=== PATIENT | female | born 1945 | race Caucasian/White ===

== ENCOUNTER 2017-10-11 08:54 | Emergency (ER) | payer MEDICARE, OTHER ==
--- NOTE | 2017-10-11 09:37 | EDM.PDOC ---
ED HPI GENERAL MEDICAL PROBLEM - General Chief Complaint: Eye Problems Stated Complaint: INFECTED RIGHT EYE Time Seen by Provider: 10/11/17 09:36 Source of Information: Reports: Patient History Limitations: Reports: No Limitations - History of Present Illness INITIAL COMMENTS - FREE TEXT/NARRATIVE: pt arrived with drainage and redness in the rt eye. This started yesterday and now it is alot worse. She had no feeling of a foreign body. She hs alot of drainage and the eye is sealed shut this am. Onset: Other ( started yesterday) Duration: Day(s): Location: Reports: Face Associated Symptoms: Reports: No Other Symptoms - Related Data Allergies Allergy/AdvReac Type Severity Reaction Status Date / Time piroxicam [From Feldene] Allergy Hives Verified 10/11/17 09:20 Home Meds: Home Meds Aspirin 81 mg PO DAILY 10/11/17 [History] Calc/D3/Mag/Zn/Circuit Board Drafter/Shamar/Kirkwood [Calcium 600 MG Plus Vit D] 1 tab PO BID 10/11/17 [History] Fexofenadine [Nohemi] 180 mg PO DAILY 10/11/17 [History] Fluticasone/Salmeterol [Advair 250-50] 1 inh INH BID 10/11/17 [History] Hydrochlorothiazide 12.5 mg PO DAILY 10/11/17 [History] Insulin Pump Cartridge [Omnipod] 10/11/17 [History] Metoprolol Succinate [Toprol XL 100mg] 100 mg PO DAILY 10/11/17 [History] Phentermine/Topiramate [Qsymia 7.5 mg-46 mg Capsule] 1 tab PO BID 10/11/17 [ History] amLODIPine Besylate/Benazepril [Lotrel 5-40 MG] 1 tab PO DAILY 10/11/17 [History ] atorvaSTATin [Lipitor] 20 mg PO DAILY 10/11/17 [History] Past Medical History Cardiovascular History: Reports: Hypertension Respiratory History: Reports: Asthma Musculoskeletal History: Reports: Osteoarthritis Endocrine/Metabolic History: Reports: Diabetes, Type I - Past Surgical History HEENT Surgical History: Reports: Tonsillectomy GI Surgical History: Reports: Appendectomy Social & Family History - Tobacco Use Smoking Status *Q: Never Smoker - Recreational Drug Use Recreational Drug Use: No ED ROS GENERAL - Review of Systems Review Of Systems: See Below Constitutional: Reports: No Symptoms HEENT: Reports: Eye Discharge, Eye Pain Respiratory: Reports: No Symptoms Cardiovascular: Reports: No Symptoms Endocrine: Reports: No Symptoms GI/Abdominal: Reports: No Symptoms : Reports: No Symptoms ED EXAM GENERAL W FULL EYE - Physical Exam Exam: See Below Text/Narrative:: pt arrived with dischrge from the rt eye with considerable redness. She had lazer surgery about 4 weeks ago. Exam Limited By: No Limitations General Appearance: Alert, Mild Distress, Other ( rt eye is very red and injected. There is drainage from the eye. Thre is slight swelling around the eye. ) Ears: Normal TMs Nose: Normal Inspection Throat/Mouth: Normal Inspection Head: Atraumatic Neck: Normal Inspection Course - Vital Signs Last Recorded V/S: Last Vital Signs Temp 36.4 C 10/11/17 09:16 Pulse 64 10/11/17 09:16 Resp 13 10/11/17 09:16 BP 145/63 H 10/11/17 09:16 Pulse Ox 93 L 10/11/17 09:16 Departure - Departure Time of Disposition: 09:41 Disposition: Home, Self-Care 01 Condition: Fair Clinical Impression: Acute bacterial conjunctivitis - Discharge Information Referrals: Frankie De Los Santos Sr, MD [Primary Care Provider] - Forms: ED Department Discharge Care Plan Goals: obradex 1-2 drops qid in the rt eye for the next 5 days. If not improving have this rechecked.
== END 2017-10-11 09:51 | disposition home or self-care (01) ==
LOC: JP.ED 08:54
DX: H10.31 Unspecified acute conjunctivitis, right eye (principal); E10.9 Type 1 diabetes mellitus without complications; M19.90 Unspecified osteoarthritis, unspecified site; Z88.8 Allergy status to other drugs, medicaments and biological substances; Z79.82 Long term (current) use of aspirin; Z79.899 Other long term (current) drug therapy
CPT/HCPCS: 99283

== ENCOUNTER 2018-09-27 09:04 | Inpatient (IN) | payer MEDICARE, OTHER ==
[~2018-09-27 09:04] MED LIST: Acetaminophen 500 MG Tab PO ONE
[2018-09-27] MEDS ORDERED: Dextrose 5%-Lactated Ringers 1,000 ML IV SCH (10:00)
[2018-09-27] MEDS ORDERED: Isosulfan Blue 5 ML SDV ONE (10:01)
[2018-09-27] MEDS ORDERED: Albuterol/Ipratropium 3.0-0.5 MG/3 ML Neb Soln NEB ONE (10:30)
[2018-09-27] MEDS ORDERED: ceFAZolin 2 GM in Premix Bag 1 BAG IV ONE (10:30)
[2018-09-27] MEDS ORDERED: Midazolam 1 MG/ML 2 ML SDV ONE (10:54)
[2018-09-27] MEDS ORDERED: Propofol 200 MG/20 ML SDV ONE (10:54)
[2018-09-27] MEDS ORDERED: fentaNYL 100 MCG/2 ML SDV ONE (10:54)
[2018-09-27] MEDS ORDERED: Succinylcholine 200 MG/10 ML MDV ONE (10:55)
[2018-09-27] MEDS ORDERED: Dexamethasone 4 MG/ML SDV ONE (10:55)
[2018-09-27] MEDS ORDERED: Neostigmine Methylsulfate 1 MG/ML 5 ML Syringe ONE (10:55)
[2018-09-27] MEDS ORDERED: Glycopyrrolate 0.2 MG/ML 5 ML MDV ONE (10:55)
[2018-09-27] MEDS ORDERED: Ondansetron 4 MG/2 ML SDV ONE (10:55)
[2018-09-27] MEDS ORDERED: fentaNYL 250 MCG/5 ML SDV ONE (11:24)
[2018-09-27] MEDS ORDERED: Triamcinolone Acetonide 40 MG/ML 1 ML MDV ONE (12:09)
[2018-09-27] MEDS ORDERED: HYDROmorphone/Normal Saline 15 MG/30 ML PCA IV PRN (12:46)
[2018-09-27] MEDS ORDERED: Naloxone 0.4 MG/ML SDV IV PRN (12:48)
[2018-09-27] MEDS ORDERED: Ondansetron 4 MG/2 ML SDV IVPUSH PRN (13:50)
[2018-09-27] MEDS ORDERED: Albuterol 8 GM Inhaler INH PRN (13:51)
[2018-09-27] MEDS ORDERED: NOVOLOG INSULIN PUMP SUBCUT SCH (14:00)
[2018-09-27] MEDS ORDERED: Pantoprazole 40 MG Vial IV SCH (16:00)
[2018-09-27] MEDS: ceFAZolin 2 GM in Premix Bag 1 BAG IV SCH (16:38)
[2018-09-27] MEDS ORDERED: Lactated Ringers 1,000 ML IV SCH (20:45)
[2018-09-27] MEDS: Fluticasone-Salmeterol 113-14 MCG Powder Inhalant INH SCH (21:35)
[2018-09-28] MEDS: ceFAZolin 2 GM in Premix Bag 1 BAG IV SCH ×2 (00:37→08:04)
[2018-09-28] MEDS ORDERED: HYDROmorphone 2 MG Tab PO PRN (07:11)
[2018-09-28] MEDS ORDERED: Acetaminophen 325 MG Tab PO PRN (07:11)
[2018-09-28] MEDS: Fluticasone-Salmeterol 113-14 MCG Powder Inhalant INH SCH ×2 (08:33→20:05)
[2018-09-28] MEDS: Hydrochlorothiazide 12.5 MG Cap PO SCH (08:33)
[2018-09-28] MEDS: Metoprolol Succinate 50 MG Tab.ER PO SCH (08:35)
[2018-09-28] MEDS: Loratadine 10 MG Tab PO SCH (08:35)
[2018-09-28] MEDS: amLODIPine 5 MG Tab PO SCH (08:35)
[2018-09-28] MEDS: Aspirin 81 MG Tab.EC PO SCH (08:35)
[2018-09-28] MEDS: atorvaSTATin 20 MG Tab PO SCH (08:40)
--- NOTE | 2018-09-28 13:45 | PN ---
DATE OF SERVICE: 09/28/2018 The patient has been afebrile with stable vital signs. Blood sugars were a little bit high last night, but they are coming down. She will satisfactorily today, I would think, and will go up to her usual diet. NITHYA drainage has been minimal. Pain control has been good with patient being on for pain and will go to oral Tylenol and/or Dilaudid today. She will likely be ready for discharge home tomorrow. Joesph Thurston MD /[id number]
[2018-09-28] MEDS ORDERED: Pantoprazole 40 MG Tab.CR PO SCH (16:00)
[2018-09-29] MEDS: Fluticasone-Salmeterol 113-14 MCG Powder Inhalant INH SCH (07:22)
[2018-09-29] MEDS: Loratadine 10 MG Tab PO SCH ×2 (07:25→08:30)
[2018-09-29] MEDS: amLODIPine 5 MG Tab PO SCH ×2 (07:26→08:31)
[2018-09-29] MEDS: Hydrochlorothiazide 12.5 MG Cap PO SCH ×2 (07:26→08:30)
[2018-09-29] MEDS: Metoprolol Succinate 50 MG Tab.ER PO SCH ×2 (07:27→08:31)
[2018-09-29] MEDS: Aspirin 81 MG Tab.EC PO SCH (08:30)
[2018-09-29] MEDS: atorvaSTATin 20 MG Tab PO SCH (08:30)
--- NOTE | 2018-09-29 14:00 | OR ---
DATE OF PROCEDURE: 09/27/2018 SURGEON: Joesph Thurston MD PREOPERATIVE DIAGNOSIS: Carcinoma, left breast. POSTOPERATIVE DIAGNOSIS: Carcinoma, left breast. OPERATIVE PROCEDURES: 1. Left modified radical mastectomy with sentinel lymph node biopsy (25293). 2. Injection procedure for identification of sentinel lymph node ([id number]). ANESTHESIA: General. CHILDREN'S ENTERTAINER: Ceci Cortez PA-C. 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 After preoperative evaluation with both myself and Dr. Shepherd of the Medical Oncology Department, she wishes to proceed with a mastectomy with sentinel lymph node biopsy. Potential risks of the procedure including bleeding, infection, possible local distant tumor recurrence, possible need for a full axillary dissection if the damian status is found to be positive, were all gone over, and the patient wishes to proceed. DETAILS OF PROCEDURE: The patient was taken to the operating room and after general endotracheal anesthesia was induced, the left breast, axilla and surrounding areas were prepped and draped. An elliptical incision was then designed removing nipple-areolar complex due to the close wide margin around the biopsy site. This was carried down through the skin and subcutaneous tissue. Subcutaneous tissue flaps were then raised superiorly, inferiorly, laterally, and medially to the usual extent. Prior to the patient having undergone the prep, 4 mL of isosulfan blue dye was injected in the area around the biopsy site, nipple-areolar complex in the subdermal location. This then allowed tracing down the lymphatic channels from the upper aspect of the breast into the axilla. An aggregate of damian tissue that had blue staining within it was then identified, and this was excised with the aid of electrocautery, as well as some hemoclips, and that specimen delivered from the field. On frozen section, pathologist found five nodes. One of these had a small area of possible equivocal metastatic disease, but she was by no means certain of this. Given the tiny area of infiltrating tumor, a discussion was held, and it was felt that further axillary dissection would not be warranted. Pending final pathologic review, if this remains relatively small focus with five other nodes being negative, that probably would be a sufficient axillary dissection at this point regardless. The breast was then reflected off the chest wall in continuity with pectoralis major fascia and was then delivered from the field. The area of dissection was inspected. No bleeding or other problems were noted. Two Keon-Haney drains were then placed inferior to the main incision and draped across the bed of the dissection. The incision was then closed with some 3-0 Vicryl stitch deep and isaak for the skin. Drains were affixed with some 4-0 Vicryl stitch. Dressing was applied. The patient was taken to the recovery room in a satisfactory condition. Physician registered dental assistant rda, Ceci Cortez, played an essential role in assisting in this case, helping to position the patient, retract structures as needed, as well as suturing and cutting sutures when indicated. Her presence improved patient safety and decreased the operative time. Joesph Thurston MD /[id number]
--- NOTE | 2018-09-30 09:06 | DISCH ---
ADMISSION DIAGNOSES: 1. Left breast cancer. 2. Asthma. 3. Chronic obstructive pulmonary disease. 4. Gastroesophageal reflux disease. 5. Hypertension. 6. Type 1 diabetes. DISCHARGE DIAGNOSES: Left modified radical mastectomy with sentinel lymph node biopsy and injection of dye for sentinel lymph node identification for left breast cancer. Date of surgery: 09/27/2018. HISTORY: Jaja Garza is a 73-year-old female presenting with a newly diagnosed area of high-grade DCIS, along with a micro focus of 0.1 cm of invasive ductal carcinoma. After preoperative evaluation and discussion of possible risks and possible complications, she wished to proceed with surgical procedure. HOSPITAL COURSE: Jaja had her surgery on 09/27/2018. She had no operative complications. On postoperative day #1, she was afebrile, blood sugars were high but were coming down. Pain was well controlled. NITHYA drains were putting out minimal amount of pink drainage. On postoperative day #2, vital signs were stable. Activity was good. Pain was managed with Tylenol. Oral intake adequate and blood sugars remained to be elevated at 278 and 300. Jaja did receive physical therapy consultation for home instructions following a mastectomy. Patient education sheet was given. PHYSICAL EXAMINATION: GENERAL: Jaja is a 73-year-old female. VITAL SIGNS: Height 5 feet 2.99 inches, weight is 186 pounds. TPR 97.8, 60, 16, blood pressure 136/58. HEENT: Negative. NECK: Supple. HEART: Regular rate and rhythm. BREASTS: Left mastectomy staple line intact. There is no swelling. No seromas noted. Two NITHYA drains are intact, draining a light pink serosanguineous drainage. ABDOMEN: Soft, nontender. EXTREMITIES: Without peripheral edema. DISPOSITION: Discharged to home. CONDITION: Stable and improving. FOLLOWUP: Followup appointment with Joesph Thurston MD, at [facility] on 10/06/2018 at 9:00 a.m. HOME MEDICATIONS: 1. Tylenol 650 mg q.6 hours p.r.n. pain. 2. Dilaudid 2 mg q.4 hours p.r.n. pain, #20. Resume home medications: 1. Albuterol 1 to 2 puffs every 4 hours p.r.n. shortness of breath. 2. Aspirin 81 mg daily. 3. Biotin 7500 mcg oral daily. 4. Calcium 600 mg plus vitamin D one tablet twice daily. 5. Vitamin D3 1000 International Units daily. 6. Nohemi 180 mg oral daily. 7. Advair 1 inhalation twice daily. 8. NovoLog 35 units subcutaneous as directed, insulin pump per current settings. 9. Metoprolol-XL 100 mg daily. 10.Multivitamin one daily. 11.Lotrel 5/40 mg one tablet oral daily. 12.Lipitor 20 mg oral daily. 13.Hydrochlorothiazide 12.5 mg oral daily. DIET: Diabetic diet. Drink 8 to 10 glasses of water a day. ACTIVITY: No lifting over 10 pounds for 6 weeks. Other activity: Walk at least 6 times daily. Driving: Do not drive for 1 week. Shower/bathing: May shower. DISCHARGE INSTRUCTIONS: Notify provider if any fever, increased pain, swelling, redness, drainage, nausea, or vomiting. Keep site clean and dry. Strip, empty, measure, and record NITHYA drains 4 times a day. Bring record of drainage to clinic appointments. Use incentive spirometer 10 times every hour while awake and check blood sugars as she did prior to admission.
== END 2018-09-29 09:57 | disposition home or self-care (01) | DRG 580 ==
LOC: JP.MS 09:04 → JP.SDS 09:05 → JP.MS 12:40 → EDSTATUS 13:00
PROVIDERS: ADMIT Surgery; ATTEND Surgery
PROC: 0HTU0ZZ Resection of Left Breast, Open Approach (ICD-10-PCS; principal; 2018-09-27)
PROC: 07B60ZX Excision of Left Axillary Lymphatic, Open Approach, Diagnostic (ICD-10-PCS; principal; 2018-09-27)
DX: C50.912 Malignant neoplasm of unspecified site of left female breast (principal); C77.3 Secondary and unspecified malignant neoplasm of axilla and upper limb lymph nodes; K21.9 Gastro-esophageal reflux disease without esophagitis; J44.9 Chronic obstructive pulmonary disease, unspecified; I10 Essential (primary) hypertension; E10.8 Type 1 diabetes mellitus with unspecified complications; J45.40 Moderate persistent asthma, uncomplicated; Z79.4 Long term (current) use of insulin; Z79.899 Other long term (current) drug therapy; Z79.82 Long term (current) use of aspirin; Z88.8 Allergy status to other drugs, medicaments and biological substances
CPT/HCPCS: 94640; 94762; 97161-GP; A9270-GY; C9113; J0330; J0690; J1100; J1170; J2250; J2405; J2704; J2710; J3010; J3301; J3490; J7120; J7620-GY; Q9968

== ENCOUNTER 2022-02-05 08:44 | Emergency (ER) | payer MEDICARE, OTHER ==
[2022-02-05] MEDS ORDERED: Lidocaine 4% Crm 5 GM Tube TOP ONE (09:26)
== END 2022-02-05 10:59 | disposition home or self-care (01) ==
LOC: JP.ED 08:44
DX: L03.115 Cellulitis of right lower limb (principal); J44.9 Chronic obstructive pulmonary disease, unspecified; E78.00 Pure hypercholesterolemia, unspecified; I10 Essential (primary) hypertension; E10.9 Type 1 diabetes mellitus without complications; Z88.6 Allergy status to analgesic agent; Z79.82 Long term (current) use of aspirin; Z79.899 Other long term (current) drug therapy; Z79.4 Long term (current) use of insulin; Z90.49 Acquired absence of other specified parts of digestive tract; Z87.891 Personal history of nicotine dependence
CPT/HCPCS: 36415; 80048; 83605; 85025; 99283; 99284

== ENCOUNTER 2022-02-08 07:26 | Emergency (ER) | payer MEDICARE, OTHER ==
[2022-02-08] MEDS ORDERED: Lidocaine 1% 5 ML VIAL INJECT ONE (08:16)
[2022-02-08] MEDS ORDERED: Cetirizine 10 MG Tab PO ONE (08:20)
== END 2022-02-08 08:57 | disposition home or self-care (01) ==
LOC: JP.ED 07:26
DX: L03.115 Cellulitis of right lower limb (principal); E10.628 Type 1 diabetes mellitus with other skin complications; S80.11XD Contusion of right lower leg, subsequent encounter; S81.801D Unspecified open wound, right lower leg, subsequent encounter; L08.9 Local infection of the skin and subcutaneous tissue, unspecified; I10 Essential (primary) hypertension; Z88.1 Allergy status to other antibiotic agents; Z79.82 Long term (current) use of aspirin; Z79.899 Other long term (current) drug therapy; Z79.4 Long term (current) use of insulin; Z90.49 Acquired absence of other specified parts of digestive tract; Z87.891 Personal history of nicotine dependence
CPT/HCPCS: 10060; 87070; 87205; 99283; A9270